=== PATIENT | female | born 1940 | race Caucasian/White ===

== ENCOUNTER → 2016-10-26 | Outpatient (CLI) | payer MEDICARE, BC, MEDICAID ==
[~2016-10-26] MED LIST: ACIDOPHILUS LA1 EACH PO; ACTOS 15MG TAB15 MG PO; ALBUTEROL2.5 MG/3 M IH; ALDACTONE 25MG25 M1 PO; ALDACTONE PO; AMIODARONE200 MG PO; AMITRIPTYLINE H50 M1 PO; AMITRIPTYLINE PO; AMITRIPTYLINE50 MG PO; ATROVENT INHALE14 GM; BACITRACIN TOP O1 TU TP; BACITRACIN TOPIC1 T1 TOP; BALM TP; BROVANA15 MCG/2 M IH; BUDESONIDE1 MG/2 ML IH; CEFDINIR300 MG PO; COLACE100 M1 PO; CYCLOBENZ5 MG PO; CYCLOBENZAPRINE10 M1 PO; CYCLOBENZAPRINE10 MG PO; DEMADEX 20MG20 M1; DEMADEX 20MG20 M1 PO; DEMADEX 20MG20 MG PO; DEMADEX PO; DEMADEX100 MG PO; DEMADEX20 MG PO; DIFLUCAN 100MG100 MG PO; DIGOXIN0.125 MG PO; DILAUDID 2MG TAB2 MG PO; DILAUDID 4MG TAB4 MG PO; DILAUDID4 M1 PO; DULERA1 AR1; ELIQUIS5 MG PO; FERROUS SULFAT325 M4 PO; FORTAMET500 M1 PO; GLUCOPHAGE XR500 M2 PO; HYQVIA; INCRUSE EL62.5 MCG/A IH; IPRATROPIUM BROM3 M1 IH; K-DUR 2020 MEQ PO; K-DUR20 MEQ PO; LEVAQUIN 5500 MG/TA1 PO; LIDOCAINE1 EACH TP; LIDODERM 5% PATC1 EA TOP; LIDODERM 5% PATC1 EA TP; LINEZOLID600 MG PO; LIPITOR 40MG TA40 MG PO; MAG-OX 400400 MG/TAB PO; MAGNESIUM OXID400 MG PO; MAOX420 MG PO; METFORMIN ER500 MG PO; METFORMIN HCL500 M1 PO; METOLAZONE5 MG PO; METOZOLV ODT5 MG PO; MIRALAX 17GM PK1 PKT PO; MIRALAX PA17 GM/Dose PO; MIRALAX17 GM PO; NYSTOP100000 U/G TOP; OMNICEF 300MG300 MG PO; PEG 335017 GM/Dose PO; POTA20PKT PO; POTASSIUM CH2 MEQ/ML PO; POTASSIUM CHLO10 ME5 PO; POTASSIUM CHLO10 ME6 PO; POTASSIUM CHLOR8 ME3 PO; POTASSIUM IOD PO; PREDNISONE10 M1 PO; PREDNISONE10 MG PO; PROAIR RESPICL90 MCG IH; PROMETHAZINE HC25 M2 PO; PROTONIX40 MG/Pack PO; PULMICORT R1 MG/2 ML IH; RESTORIL PO; RESTORIL30 M1 PO; RT SPIRIVA INH18 MCG IH; SILVADENE11 TP; SIMVASTATIN40 M1 PO; SINGULAIR PO; SINGULAIR10 MG PO; SPIRIVA HANDIH18 MCG IH; SPIRIVA INH IH; SSKI1 GM/ML PO; SYMBICORT1 AE3 IH; SYNTHROID0.125 MG/T PO; SYNTHROID0.15 MG PO; TAZTIA XT120 MG PO; TAZTIA XT180 MG PO; THEOPHYLLINE E200 MG PO; THEOPHYLLINE400 M1 PO; VENTOLIN0.09 MG INH; VIBRAMYCIN100 MG PO; VITAMIN C500 MG PO; VITAMIN E 400 U4001 PO; VITAMIN E1000 U/CAP; ZAROXOLYN PO; ZOCOR 40MG40 MG PO; ZOFRAN8 MG PO; [UNRECOGNIZED DRUG - OTHER] PO
== END ==
LOC: LAB 09:46
DX: E11.9 Type 2 diabetes mellitus without complications (principal); I27.2 Other secondary pulmonary hypertension; I27.81 Cor pulmonale (chronic)

== ENCOUNTER → 2016-11-23 | Outpatient (CLI) | payer MEDICARE, BC, MEDICAID | LOC: LAB 08:26 | DX: E11.9 Type 2 diabetes mellitus without complications (principal); I27.81 Cor pulmonale (chronic); I27.2 Other secondary pulmonary hypertension ==

== ENCOUNTER → 2016-12-23 | Outpatient (CLI) | payer MEDICARE, BC, MEDICAID | LOC: LAB 11:54 | DX: E11.9 Type 2 diabetes mellitus without complications (principal); I27.2 Other secondary pulmonary hypertension; I27.81 Cor pulmonale (chronic) ==

== ENCOUNTER → 2016-12-24 | Outpatient (CLI) | payer MEDICARE, BC, MEDICAID ==
[2016-12-24] VITALS (8 sets, daily range): BP systolic 98–145; BP diastolic 25–52
== END ==
LOC: AMSURD 13:09
DX: D64.9 Anemia, unspecified (principal); I25.10 Atherosclerotic heart disease of native coronary artery without angina pectoris; J44.9 Chronic obstructive pulmonary disease, unspecified
CPT/HCPCS: P9016

== ENCOUNTER → 2017-01-18 | Outpatient (CLI) | payer MEDICARE, BC, MEDICAID ==
[2016-12-24 18:12] VITALS: BP 129/45
== END ==
LOC: LAB 11:42
DX: E11.9 Type 2 diabetes mellitus without complications (principal); I27.81 Cor pulmonale (chronic)

== ENCOUNTER 2017-03-01 15:35 | Inpatient (IN) | payer MEDICARE, BC, MEDICAID ==
[~2017-03-01] VITALS: Ht 149.9 cm; Wt 67.0 kg
[~2017-03-01 15:35] MED LIST changes: -ACIDOPHILUS LA1 EACH PO; -ACTOS 15MG TAB15 MG PO; -DEMADEX 20MG20 M1 PO; -GLUCOPHAGE XR500 M2 PO; -INCRUSE EL62.5 MCG/A IH; -IPRATROPIUM BROM3 M1 IH; -LIDOCAINE1 EACH TP; -LIPITOR 40MG TA40 MG PO; -POTA20PKT PO; -PROTONIX40 MG/Pack PO; -ZOFRAN8 MG PO
[2017-03-01 16:55] VITALS: BP 110/59
[2017-03-01 17:30] VITALS: BP 110/59
[2017-03-01 23:33] VITALS: BP 114/48
[2017-03-02 03:15] VITALS: BP 105/50
[2017-03-02 06:23] VITALS: BP 115/44
[2017-03-02 15:56] VITALS: BP 105/57
[2017-03-02 18:12] VITALS: BP 86/58
[2017-03-02 23:56] VITALS: BP 107/57
[2017-03-03] VITALS (7 sets, daily range): BP systolic 86–114; BP diastolic 46–56
[2017-03-04] VITALS (24 sets, daily range): BP systolic 95–132; BP diastolic 39–92
[2017-03-05 02:50] VITALS: BP 121/59
[2017-03-05 06:21] VITALS: BP 100/49
[2017-03-05 10:53] VITALS: BP 105/48
[2017-03-05 15:26] VITALS: BP 128/68
[2017-03-05 18:35] VITALS: BP 120/84
[2017-03-05 23:59] VITALS: BP 132/68
[2017-03-06 02:31] VITALS: BP 138/70
[2017-03-06 06:06] VITALS: BP 134/82
[2017-03-06 11:10] VITALS: BP 135/78
[2017-03-06 16:12] VITALS: BP 120/70
[2017-03-06 18:18] VITALS: BP 110/70
[2017-03-06 23:17] VITALS: BP 113/51
[2017-03-07 02:51] VITALS: BP 129/57
[2017-03-07 06:22] VITALS: BP 110/58
[2017-03-07 11:00] VITALS: BP 120/36
[2017-03-07 15:25] VITALS: BP 158/65
[2017-03-07 18:21] VITALS: BP 99/45
[2017-03-07 23:14] VITALS: BP 142/50
[2017-03-08 03:41] VITALS: BP 134/57
[2017-03-08 06:27] VITALS: BP 124/71
[2017-03-08 11:02] VITALS: BP 109/63
[2017-03-08 15:05] VITALS: BP 126/72
[2017-03-08 18:06] VITALS: BP 105/69
[2017-04-20] MEDS ORDERED: ACTOS 15MG TAB15 MG PO (09:50)
== END 2017-03-08 17:29 | disposition home health service (06) | DRG 592 ==
LOC: MED/SURG 15:35
PROVIDERS: ADMIT Internal Medicine
DX: L89.893 Pressure ulcer of other site, stage 3 (principal); L03.315 Cellulitis of perineum; K56.60 Unspecified intestinal obstruction; I27.81 Cor pulmonale (chronic); E03.9 Hypothyroidism, unspecified; J44.9 Chronic obstructive pulmonary disease, unspecified; E11.9 Type 2 diabetes mellitus without complications; N18.3 Chronic kidney disease, stage 3 (moderate); I48.0 Paroxysmal atrial fibrillation; Z79.4 Long term (current) use of insulin; Z85.42 Personal history of malignant neoplasm of other parts of uterus; Z85.3 Personal history of malignant neoplasm of breast; Z96.641 Presence of right artificial hip joint; Z87.891 Personal history of nicotine dependence; L89.311 Pressure ulcer of right buttock, stage 1; D50.9 Iron deficiency anemia, unspecified
CPT/HCPCS: J0696; J1170; J1650; J1940; J2020; J2916; P9016

== ENCOUNTER → 2017-03-01 | Outpatient (CLI) | payer MEDICARE, BC, MEDICAID ==
[2016-12-24 18:12] VITALS: BP 129/45
== END ==
LOC: RAD 15:52
DX: D64.9 Anemia, unspecified (principal); E11.9 Type 2 diabetes mellitus without complications; R06.02 Shortness of breath; I27.2 Other secondary pulmonary hypertension; L89.322 Pressure ulcer of left buttock, stage 2; E03.4 Atrophy of thyroid (acquired)

== ENCOUNTER 2017-03-07 12:31 | Inpatient (IN) | payer MEDICARE, BC, MEDICAID ==
[~2017-03-07] VITALS: Ht 149.9 cm; Wt 67.5 kg
[2017-03-08 20:24] VITALS: BP 105/69
[2017-03-08 20:27] VITALS: BP 105/69
[2017-03-09 06:28] VITALS: BP 109/67
[2017-03-09 17:40] VITALS: BP 115/45
[2017-03-10 06:16] VITALS: BP 102/52
[2017-03-10 18:09] VITALS: BP 105/57
[2017-03-11 06:26] VITALS: BP 105/65
[2017-03-11 18:40] VITALS: BP 114/52
[2017-03-12 06:18] VITALS: BP 105/40
[2017-03-12 18:07] VITALS: BP 115/58
[2017-03-13 06:31] VITALS: BP 94/49
[2017-03-13 10:07] VITALS: BP 132/83
[2017-03-13 18:10] VITALS: BP 99/33
[2017-03-13 18:34] VITALS: BP 128/57
[2017-03-14 06:33] VITALS: BP 102/50
[2017-03-14 17:55] VITALS: BP 111/67
[2017-03-15 06:21] VITALS: BP 121/63
[2017-03-15 18:06] VITALS: BP 103/55
[2017-03-16 06:24] VITALS: BP 118/52
[2017-03-16 18:17] VITALS: BP 125/66
[2017-03-17 06:26] VITALS: BP 127/57
[2017-03-17 18:01] VITALS: BP 107/50
[2017-03-18 06:20] VITALS: BP 159/109
[2017-03-18 18:40] VITALS: BP 95/50
[2017-03-19 06:28] VITALS: BP 126/75
[2017-03-19 18:46] VITALS: BP 114/63
[2017-03-20 06:26] VITALS: BP 138/50; BP 138/65
[2017-03-20 18:08] VITALS: BP 119/68
[2017-03-21 06:23] VITALS: BP 113/50
[2017-03-21 18:19] VITALS: BP 112/56
[2017-03-22 06:30] VITALS: BP 149/65
[2017-03-22 18:12] VITALS: BP 120/77
[2017-03-23 06:20] VITALS: BP 128/71
[2017-03-23 18:08] VITALS: BP 150/97
[2017-03-23 18:54] VITALS: BP 130/76
[2017-03-24 06:23] VITALS: BP 154/69
[2017-03-24 17:56] VITALS: BP 124/54
[2017-03-25 06:23] VITALS: BP 174/76
[2017-03-25 14:46] VITALS: BP 134/72
[2017-04-20] MEDS ORDERED: ACTOS 15MG TAB15 MG PO (09:50)
== END 2017-03-25 15:15 | DRG 592 ==
LOC: MED/SURG 12:31
PROVIDERS: ADMIT Internal Medicine
DX: L89.223 Pressure ulcer of left hip, stage 3 (principal); K52.1 Toxic gastroenteritis and colitis; Z87.891 Personal history of nicotine dependence; I27.81 Cor pulmonale (chronic); I87.2 Venous insufficiency (chronic) (peripheral); D11.9 Benign neoplasm of major salivary gland, unspecified; J44.9 Chronic obstructive pulmonary disease, unspecified; I25.10 Atherosclerotic heart disease of native coronary artery without angina pectoris; T36.1X5A Adverse effect of cephalosporins and other beta-lactam antibiotics, initial encounter; E86.0 Dehydration; K56.60 Unspecified intestinal obstruction; R32 Unspecified urinary incontinence; E11.9 Type 2 diabetes mellitus without complications
CPT/HCPCS: J0696; J1644; J1650; J1885; J2020; J2550

== ENCOUNTER → 2017-04-13 | Outpatient (REF) ==
[2017-03-25 14:46] VITALS: BP 134/72
[~2017-04-13] MED LIST changes: +ACIDOPHILUS LA1 EACH PO; +ACTOS 15MG TAB15 MG PO; +DEMADEX 20MG20 M1 PO; +GLUCOPHAGE XR500 M2 PO; +INCRUSE EL62.5 MCG/A IH; +IPRATROPIUM BROM3 M1 IH; +LIDOCAINE1 EACH TP; +LIPITOR 40MG TA40 MG PO; +POTA20PKT PO; +PROTONIX40 MG/Pack PO; +ZOFRAN8 MG PO
== END ==
LOC: LAB 10:15
DX: E11.9 Type 2 diabetes mellitus without complications (principal); I25.10 Atherosclerotic heart disease of native coronary artery without angina pectoris; I27.2 Other secondary pulmonary hypertension

== ENCOUNTER 2017-04-16 23:08 | Emergency (ER) | payer MEDICARE, BC, MEDICAID ==
[~2017-04-16] VITALS: Ht 149.9 cm; Wt 65.5 kg
[~2017-04-16 23:08] MED LIST changes: -ACIDOPHILUS LA1 EACH PO; -ACTOS 15MG TAB15 MG PO; -DEMADEX 20MG20 M1 PO; -GLUCOPHAGE XR500 M2 PO; -INCRUSE EL62.5 MCG/A IH; -IPRATROPIUM BROM3 M1 IH; -LIDOCAINE1 EACH TP; -LIPITOR 40MG TA40 MG PO; -POTA20PKT PO; -PROTONIX40 MG/Pack PO; -ZOFRAN8 MG PO
[2017-04-17] MEDS ORDERED: ACIDOPHILUS LA1 EACH PO (03:13)
[2017-04-17] MEDS ORDERED: DEMADEX 20MG20 M1 PO (03:15)
[2017-04-17] MEDS ORDERED: IPRATROPIUM BROM3 M1 IH (03:17)
[2017-04-17] MEDS ORDERED: AMITRIPTYLINE PO (03:18)
[2017-04-17] MEDS ORDERED: GLUCOPHAGE XR500 M2 PO (03:20)
[2017-04-17] MEDS ORDERED: INCRUSE EL62.5 MCG/A IH (03:21)
[2017-04-17] MEDS ORDERED: LIDOCAINE1 EACH TP (03:21)
[2017-04-17] MEDS ORDERED: LIPITOR 40MG TA40 MG PO (03:22)
[2017-04-17] MEDS ORDERED: POTA20PKT PO (03:25)
[2017-04-17] MEDS ORDERED: PROTONIX40 MG/Pack PO (03:26)
[2017-04-17] MEDS ORDERED: ZOFRAN8 MG PO (03:28)
[2017-04-17 04:50] VITALS: BP 127/54
[2017-04-20] MEDS ORDERED: ACTOS 15MG TAB15 MG PO (09:50)
== END 2017-04-17 04:50 | disposition short-term general hospital (02) ==
LOC: ED 23:08
DX: A41.9 Sepsis, unspecified organism (principal); J44.9 Chronic obstructive pulmonary disease, unspecified; I10 Essential (primary) hypertension; I27.81 Cor pulmonale (chronic); G89.29 Other chronic pain; I73.9 Peripheral vascular disease, unspecified; Z87.891 Personal history of nicotine dependence
CPT/HCPCS: J1956; J7030